=== PATIENT | female | born 1975 | race Caucasian/White ===

== ENCOUNTER 2021-01-12 16:16 | Emergency (ER) | payer BC ==
[2021-01-12 17:13] LABS: HEMOGLOBIN 15.9 gm/dl (12.3-15.3); RED BLOOD COUNT 5.26 M/UL (4.00-5.10); WHITE BLOOD COUNT 4.5 K/UL (4.5-11.0)
[2021-01-12 17:32] LABS: BUN/CREATININE RATIO 17 (0-10)
[2021-01-12] MEDS ORDERED: PHENERGAN 25 MG25 M1 PO (18:53)
[2021-01-12] MEDS ORDERED: ZOFRAN ODT 4 MG4 MG SL (18:55)
[2021-01-12] MEDS ORDERED: ENDOCET 5-3251 EACH PO ×3 (19:02→19:16)
== END 2021-01-12 20:40 | disposition home or self-care (01) ==
LOC: ER1 16:16
PROVIDERS: Emergency Medicine
DX: R10.13 Epigastric pain (principal); Z90.710 Acquired absence of both cervix and uterus
CPT/HCPCS: 80053; 80307; 81001; 83690; 85025; 96374; 96375; 99284; J1885; J2270; J2405; J2550

== ENCOUNTER → 2021-01-14 | Outpatient (CLI) | payer BC ==
[~2021-01-14] MED LIST: ENDOCET 5-3251 EACH PO; PHENERGAN 25 MG25 M1 PO; ZOFRAN ODT 4 MG4 MG SL
== END ==
LOC: US 08:00
DX: R10.13 Epigastric pain (principal)
CPT/HCPCS: 76705